=== PATIENT | female | born 1970 | race African-American/Black ===

== ENCOUNTER → 2018-03-25 12:25 | Outpatient (CLI) | payer OTHER, MEDICAID, SELFPAY ==
--- NOTE | 2018-03-25 12:26 | DI.MG.S_ITS ---
BILATERAL DIGITAL SCREENING MAMMOGRAM 3D/2D WITH CAD: 03/25/2018 CLINICAL: Routine screening. Comparison is made to exams dated: 04/01/2013 mammogram - [facility], 01/05/2009 mammogram, and 01/05/2008 mammogram - [facility]. The tissue of both breasts is heterogeneously dense. This may lower the sensitivity of mammography. Current study was also evaluated with a Computer Aided Detection (CAD) system. No significant masses, calcifications, or other findings are seen in either breast. There has been no significant interval change. IMPRESSION: NEGATIVE There is no mammographic evidence of malignancy. A 1 year screening mammogram is recommended. This exam was interpreted at Station ID: [id number]. NOTE: For mammograms, a report in lay terms will be sent to the patient. Approximately 15% of breast malignancies will not be visualized mammographically. In the management of a palpable breast mass, a negative mammogram must not discourage biopsy of a clinically suspicious lesion. Electronically Signed By: Selwyn ta/justin:03/25/2018 19:00:32 letter sent: Normal Exam ACR BI-RADS Category 1: Negative [id number]
== END ==
PROVIDERS: PCP Family Medicine; Visit Provider Family Medicine
DX: Z12.31 Encounter for screening mammogram for malignant neoplasm of breast (principal)
CPT/HCPCS: 77063; 77067

== ENCOUNTER → 2019-02-11 13:58 | Outpatient (CLI) | payer OTHER, MEDICAID, SELFPAY ==
--- NOTE | 2019-02-11 14:06 | DIET.PN ---
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 Usual Intake: Wakes 8am B 830am: 3d smoothie: pro powder, yogurt, almond milk, banana 3d: a couple hard boiled eggs L: often skips lunch or eats smaller snacks or [employer] or [employer] microwave meals snacks: balance breaks (cheese, nuts, dried fruits) or protein bar D 7-8pm: spaghetti, pizza, bailey, etc goes to bed 1-2am 6-7 hours of sleep/n Pt is busy at work, does not often have time to sit down to snack or eat. Currently does resistance training at gym 2d/w, has lost about 10# but hit a plateau. HT: 5'6 WT: 190# UBW: 183# Goal: 170# BMI: 30.7 obese Nutrition Diagnosis: nutrition related knowledge deficit r/t managing barriers of maintaining good health in 50s aeb pt often skips lunch, pairs socializing with eating out, and does not meet guidelines for 150 minutes of physical activity each week. Interventions: 1. Mindfulness around sleep habits, turn off technology and sleep in bed rather than couch, aim for 7h/n. 2. [place] with overnight oats increasing soluble fiber c bessy seeds as quick lunch or snack for more sustenance during the middle of the day. 3. Use [employer] [address] created meal plans for healthy, lower kcal meals. 4. In addition to current resistance training, incorporate 3- 30 minute sessions of cardio each week for heart health and weight loss. Monitoring/Evaluations: Pt is due for labs, encouraged to schedule. Pt will schedule f/u as desired.
== END ==
PROVIDERS: PCP Family Medicine; Visit Provider Family Medicine
DX: E66.9 Obesity, unspecified (principal); Z68.30 Body mass index [BMI] 30.0-30.9, adult; Z71.3 Dietary counseling and surveillance; Z83.3 Family history of diabetes mellitus; Z82.49 Family history of ischemic heart disease and other diseases of the circulatory system
CPT/HCPCS: 97802

== ENCOUNTER → 2019-06-03 16:39 | Outpatient (CLI) | payer OTHER, MEDICAID, SELFPAY ==
[2019-06-03 18:44] LABS: Hepatitis B Surface Antigen NEGATIVE s/c (NEGATIVE)
[2019-06-03 19:10] LABS: HIV 1 & 2 Ab/Ag 4th Gen Combo NEGATIVE (NEGATIVE); Hep C Virus Ab w/Reflex Quant NEGATIVE s/c (NEGATIVE)
[2019-06-03 21:08] LABS: Urine N gonorrhoeae NOT DETECTED
[2019-06-03 21:18] LABS: Urine Chlamydia NOT DETECTED
[2019-06-05 18:45] LABS: RPR Screen Nonreactive (Nonreactive)
== END ==
PROVIDERS: PCP Family Medicine; Referring Provider Family Medicine; Visit Provider Family Medicine
DX: Z11.3 Encounter for screening for infections with a predominantly sexual mode of transmission (principal)
CPT/HCPCS: 36415; 86592; 86803; 87340; 87389; 87491; 87591

== ENCOUNTER → 2019-08-09 15:29 | Outpatient (CLI) | payer OTHER, MEDICAID, SELFPAY ==
--- NOTE | 2019-08-09 15:32 | DI.RAD.S_ITS ---
PROCEDURE: XR SHOULDER LT MIN 2V INDICATIONS: left shoulder pain TECHNIQUE: 3 views of the shoulder were acquired. COMPARISON: None. FINDINGS: Bones: No fractures or dislocations. No suspicious bony lesions. Visualized ribs appear intact. Soft tissues: No suspicious soft tissue calcifications. IMPRESSION: No trauma found. Source of pain not seen. Dictated by: Bharat Gage M.D. on 08/09/2019 at 15:59 Approved by: Bharat Gage M.D. on 08/09/2019 at 16:00
--- NOTE | 2019-08-09 16:28 | DI.RAD.S_ITS ---
PROCEDURE: XR HAND LT MIN 3V INDICATIONS: left hand pain TECHNIQUE: 3 views of the hand(s) acquired. COMPARISON: [facility], , HAND 3V LEFT, 06/28/2013, 11:17. [facility], , HAND 3V LEFT, 05/23/2013, 12:07. FINDINGS: Bones: No fractures or dislocations. Carpal bones are normally aligned. No suspicious bony lesions. Soft tissues: No suspicious soft tissue calcifications. IMPRESSION: No trauma. Source of new pain is not identified. Dictated by: Bharat Gage M.D. on 08/09/2019 at 16:43 Approved by: Bharat Gage M.D. on 08/09/2019 at 16:44
== END ==
PROVIDERS: PCP Family Medicine; Referring Provider Family Medicine; Visit Provider Family Medicine
DX: M25.512 Pain in left shoulder (principal); M79.642 Pain in left hand
CPT/HCPCS: 73030; 73130

== ENCOUNTER → 2019-11-01 12:46 | Outpatient (CLI) | payer OTHER, MEDICAID, SELFPAY ==
--- NOTE | 2019-11-01 12:47 | DI.RAD.S_ITS ---
PROCEDURE: XR FINGER LT MIN 2V INDICATIONS: 1st finger pain TECHNIQUE: AP hand, 2 views of the left finger(s) acquired. COMPARISON: None. FINDINGS: Bones: No fractures or dislocations. No suspicious bony lesions. Chronic calcific foci measuring 2 mm Soft tissues: No suspicious soft tissue calcifications. IMPRESSION: Nonspecific soft tissue calcific foci probably dystrophic calcifications Dictated by: Yuriy Sotomayor M.D. on 11/01/2019 at 14:24 Approved by: Yuriy Sotomayor M.D. on 11/01/2019 at 14:26
--- NOTE | 2019-11-01 12:47 | DI.RAD.S_ITS ---
PROCEDURE: XR FINGER RT MIN 2V INDICATIONS: 5th finger pain TECHNIQUE: AP hand, 2 views of the right finger(s) acquired. COMPARISON: None. FINDINGS: Bones: No fractures or dislocations. No suspicious bony lesions. Soft tissues: No suspicious soft tissue calcifications. Mild soft tissue swelling at the level of the PIP joint. IMPRESSION: No fracture. If the patient's symptoms do not improve recommend followup radiographs in 10 days to assess for healing sclerosis/occult injury. Dictated by: Yuriy Sotomayor M.D. on 11/01/2019 at 14:03 Approved by: Yuriy Sotomayor M.D. on 11/01/2019 at 14:05
== END ==
PROVIDERS: PCP Family Medicine; Referring Provider Family Medicine; Visit Provider Family Medicine
DX: M79.644 Pain in right finger(s) (principal); M79.645 Pain in left finger(s)
CPT/HCPCS: 73140

== ENCOUNTER → 2020-05-28 12:59 | Outpatient (CLI) | payer OTHER, SELFPAY ==
[2020-05-28 16:34] LABS: COVID19 -Nasal RAPID Negative (Negative)
== END ==
PROVIDERS: PCP Family Medicine; Visit Provider Family Medicine Sleep Medicine
DX: Z20.822 Contact with and (suspected) exposure to COVID-19 (principal)
CPT/HCPCS: 87635; C9803

== ENCOUNTER → 2021-05-15 11:54 | Outpatient (CLI) | payer OTHER, SELFPAY ==
[2021-05-15 14:27] LABS: Add Manual Diff / Slide Review NO; Basophils Absolute Auto 100 /uL (0-100); Basophils Percent Auto 0.8 % (0-2); Eosinophils Absolute Auto 0 /uL (0-450); Eosinophils Percent Auto 0.6 % (2-4); Hematocrit 39.1 % (36-46); Hemoglobin 13.1 g/dL (12.0-16.0); Lymphocytes Absolute Auto 2500 /uL (1100-4500); Lymphocytes Percent Auto 34.5 % (25-40); Mean Corpuscular HGB Conc 33.6 % (30-36); Mean Corpuscular Hemoglobin 30.3 PG (26-34); Mean Corpuscular Volume 90.2 fL (80-100); Monocytes Absolute Auto 700 /uL (0-900); Monocytes Percent Auto 9.2 % (3-14); Neutrophils Absolute Auto 3900 /uL (1500-7000); Neutrophils Percent Auto 54.9 % (50-75); Platelet Count 252 X10^3/uL (150-400); Red Blood Cell Count 4.33 X10^6/uL (4.0-5.2); Red Cell Distribution Width 14.3 % (11.6-14.8); White Blood Cell Count 7.1 X10^3/uL (4.5-11.0)
[2021-05-15 14:49] LABS: Alanine Aminotransferase 13 IU/L (<35); Albumin 4.5 g/dL (3.5-5.0); Albumin Globulin Ratio 1.2 (1.0-2.8); Alkaline Phosphatase 83 U/L (38-126); Aspartate Aminotransferase 26 IU/L (14-36); Bilirubin Total 0.6 mg/dL (0.2-1.3); Blood Urea Nitrogen 12 mg/dL (7-17); Calcium 9.9 mg/dL (8.4-10.2); Carbon Dioxide 28 mmol/L (22-32); Chloride 103 mmol/L (98-107); Cholesterol 199 mg/dL (140-199); Estimated Glomerular Filt Rate > 60.0 mL/min (>60); Globulin 3.7 g/dL (1.7-4.1); Glucose 78 mg/dL (70-100); HEMOLYSIS < 15 (0-50); Potassium 4.7 mmol/L (3.4-5.1); Sodium 137 mmol/L (137-145); Total Protein 8.2 g/dL (6.3-8.2); Triglycerides 56 mg/dL (35-150)
[2021-05-15 14:57] LABS: HDL Cholesterol 115 mg/dL (40-60); LDL Cholesterol Calculated 73 mg/dL (<100)
[2021-05-15 16:20] LABS: Creatinine Urine Random 85.2 mg/dL
[2021-05-15 16:32] LABS: Microalbumin Urine Random < 0.6 mg/dL (0-1.6)
== END ==
PROVIDERS: PCP Family Medicine; Referring Provider Family Medicine; Visit Provider Family Medicine
DX: R60.0 Localized edema (principal)
CPT/HCPCS: 36415; 80053; 80061; 82043; 82570; 85025

== ENCOUNTER → 2023-05-14 08:59 | Outpatient (CLI) | payer OTHER, MEDICAID, SELFPAY ==
[2023-05-14 09:38] LABS: Add Manual Diff / Slide Review NO; Basophils Absolute Auto 0 /uL (0-100); Basophils Percent Auto 0.7 % (0-2); Eosinophils Absolute Auto 100 /uL (0-450); Eosinophils Percent Auto 0.9 % (2-4); Hematocrit 37.2 % (36-46); Hemoglobin 12.3 g/dL (12.0-16.0); Lymphocytes Absolute Auto 2100 /uL (1100-4500); Lymphocytes Percent Auto 28.6 % (25-40); Mean Corpuscular Hemoglobin 28.9 PG (26-34); Mean Corpuscular Volume 87.5 fL (80-100); Monocytes Absolute Auto 600 /uL (0-900); Monocytes Percent Auto 8.4 % (3-14); Neutrophils Absolute Auto 4600 /uL (1500-7000); Neutrophils Percent Auto 61.4 % (50-75); Platelet Count 280 X10^3/uL (150-400); Red Blood Cell Count 4.25 X10^6/uL (4.0-5.2); Red Cell Distribution Width 14.5 % (11.6-14.8); White Blood Cell Count 7.4 X10^3/uL (4.5-11.0)
[2023-05-14 09:52] LABS: Hemoglobin A1C% w Est Avg Glu 5.4 % (4.0-6.0)
[2023-05-14 10:05] LABS: Alanine Aminotransferase 17 IU/L (<35); Albumin 4.2 g/dL (3.5-5.0); Albumin Globulin Ratio 1.2 (1.0-2.8); Alkaline Phosphatase 110 U/L (38-126); Aspartate Aminotransferase 26 IU/L (14-36); BUN Creatinine Ratio 27.2 (6-22); Bilirubin Total 0.4 mg/dL (0.2-1.3); Blood Urea Nitrogen 22 mg/dL (7-17); Calcium 9.3 mg/dL (8.4-10.2); Carbon Dioxide 26 mmol/L (22-32); Chloride 102 mmol/L (98-107); Cholesterol 191 mg/dL (140-199); Estimated Glomerular Filt Rate > 60 mL/min (>60); Globulin 3.6 g/dL (1.7-4.1); Glucose 95 mg/dL (70-100); HDL Cholesterol 93 mg/dL (40-60); HEMOLYSIS < 15 (0-50); LDL Cholesterol Calculated 83 mg/dL (<100); Potassium 4.2 mmol/L (3.4-5.1); Sodium 139 mmol/L (137-145); Total Protein 7.8 g/dL (6.3-8.2); Triglycerides 77 mg/dL (35-150)
== END ==
PROVIDERS: PCP Family Medicine; Referring Provider Family Medicine; Visit Provider Family Medicine
DX: Z79.899 Other long term (current) drug therapy (principal); E66.9 Obesity, unspecified; Z13.220 Encounter for screening for lipoid disorders; Z83.3 Family history of diabetes mellitus; Z13.1 Encounter for screening for diabetes mellitus
CPT/HCPCS: 36415; 80053; 80061; 83036; 85025

== ENCOUNTER → 2024-04-13 12:33 | Outpatient (CLI) | payer OTHER, SELFPAY ==
--- NOTE | 2024-04-13 12:34 | DI.RAD.S_ITS ---
PROCEDURE: XR HAND LT MIN 3V INDICATIONS: Pain in thumbs and 5th finger; swollen DIP middle finger TECHNIQUE: 3 views of the hand(s) acquired. COMPARISON: [facility], CR, XR HAND LT MIN 3V, 08/09/2019, 15:26. FINDINGS: Bones: No fractures or dislocations. Carpal bones are normally aligned. Joint spaces are fairly well preserved. No gross bony erosive changes are seen. No suspicious bony lesions. Soft tissues: Small calcification is again noted in left hand soft tissue between 2nd and 1st metacarpal shafts. No new abnormal soft tissue calcifications. IMPRESSION: No left hand fracture or dislocation. No gross bony erosive changes. Joint spaces are fairly well preserved. Dictated by: Waylon Laura M.D. on 04/13/2024 at 16:00 Approved by: Waylon Laura M.D. on 04/13/2024 at 16:01
--- NOTE | 2024-04-13 12:34 | DI.RAD.S_ITS ---
PROCEDURE: XR HAND RT MIN 3V INDICATIONS: Pain in thumbs and 5th finger; swollen DIP middle finger TECHNIQUE: 3 views of the hand(s) acquired. COMPARISON: [facility], CR, XR HAND LT MIN 3V, 04/13/2024, 12:42. FINDINGS: Bones: No fractures or dislocations. Carpal bones are normally aligned. Joint spaces are fairly well preserved. No gross bony erosive changes. No suspicious bony lesions. Soft tissues: No suspicious soft tissue calcifications. IMPRESSION: No right hand fracture or dislocation. No significant osteoarthritic changes. No gross bony erosive changes. Dictated by: Waylon Laura M.D. on 04/13/2024 at 16:01 Approved by: Waylon Laura M.D. on 04/13/2024 at 16:02
== END ==
PROVIDERS: PCP Family Medicine; Referring Provider Physician Assistant; Visit Provider Physician Assistant
DX: M25.541 Pain in joints of right hand (principal); M25.542 Pain in joints of left hand
CPT/HCPCS: 73130

== ENCOUNTER → 2024-09-02 07:06 | Outpatient (CLI) | payer OTHER, SELFPAY ==
--- NOTE | 2024-09-02 07:07 | DI.US.S_ITS ---
PROCEDURE: US SOFT TISSUE ABDOMEN INDICATIONS: LEFT UPPER QUADRANT SUBCUTANEOUS LUMPS TECHNIQUE: Real-time focused scanning was performed of the abdominal wall, with image documentation. COMPARISON: None. FINDINGS: Targeted ultrasound of the left supraumbilical palpable abnormality. There is two or 3 areas of increased echogenicity in the subcutaneous fat; measuring 2 x 1.8 x 0.8 cm; and 0.5 x 0.5 x 0.4 cm. No hyperemia. No fluid collection. IMPRESSION: Suspected small lipomas at the site of palpable abnormality in the left supraumbilical subcutaneous abdominal wall. Dictated by: Bereket Diallo M.D. on 09/02/2024 at 10:53 Approved by: Bereket Diallo M.D. on 09/02/2024 at 10:56
== END ==
PROVIDERS: PCP Family Medicine; Referring Provider Family Medicine; Visit Provider Family Medicine
DX: D17.30 Benign lipomatous neoplasm of skin and subcutaneous tissue of unspecified sites (principal); L94.2 Calcinosis cutis
CPT/HCPCS: 76705